=== PATIENT | female | born 1970 | race Caucasian/White ===

== ENCOUNTER → 2016-10-17 | Outpatient (CLI) | payer BC | END | disposition home or self-care (01) | LOC: CFH 10:01 | PROVIDERS: ATTEND Physical Medicine & Rehabilitation | DX: M54.16 Radiculopathy, lumbar region (principal); C79.51 Secondary malignant neoplasm of bone; M51.36 Other intervertebral disc degeneration, lumbar region; M51.85 Other intervertebral disc disorders, thoracolumbar region; M47.894 Other spondylosis, thoracic region; M51.24 Other intervertebral disc displacement, thoracic region | CPT/HCPCS: 72148 ==

== ENCOUNTER 2016-11-08 13:56 | Emergency (ER) | payer BC ==
[~2016-11-08] VITALS: Ht 154.9 cm; Wt 67.6 kg
[2016-11-08] MEDS ORDERED: ONDANSETRON ODT 4 MG ONE (14:44)
[2016-11-08] MEDS ORDERED: HYDROmorphone 1 MG/ML, 1ML ONE (14:44)
[2016-11-08] MEDS ORDERED: HYDROmorphone 1 MG/ML, 1ML IM ONE (15:00)
[2016-11-08] MEDS ORDERED: ONDANSETRON ODT 4 MG PO ONE (15:00)
[2016-11-08 15:30] VITALS: BP 113/55
== END 2016-11-08 15:32 | disposition home or self-care (01) ==
LOC: ED 14:41
DX: M54.5 Low back pain (principal); M54.6 Pain in thoracic spine
CPT/HCPCS: 96372; 99283; J1170; Q0162

== ENCOUNTER → 2016-11-08 | Outpatient (CLI) | payer BC ==
[~2016-11-08] MED LIST: OMNIPAQUE 350 MG/ML, 100ML BOTTLE ONE
== END | disposition home or self-care (01) ==
LOC: CFH 11:58
PROVIDERS: ATTEND Internal Medicine Hematology & Oncology
DX: C79.51 Secondary malignant neoplasm of bone (principal); M54.5 Low back pain; R10.2 Pelvic and perineal pain; R10.9 Unspecified abdominal pain; R07.9 Chest pain, unspecified
CPT/HCPCS: 71260; 74177; Q9967

== ENCOUNTER → 2016-11-22 | Outpatient (CLI) | payer BC | END | disposition home or self-care (01) | LOC: CFH 08:52 | PROVIDERS: ATTEND Internal Medicine Hematology & Oncology | DX: N63 Unspecified lump in breast (principal); N60.02 Solitary cyst of left breast; M54.5 Low back pain | CPT/HCPCS: 76642; G0204 ==

== ENCOUNTER 2017-01-07 06:23 | Day surgery (SDC) | payer BC ==
[~2017-01-07] VITALS: Ht 157.5 cm; Wt 69.0 kg
[2017-01-07 07:00] VITALS: BP 126/85
[2017-01-07] MEDS ORDERED: LIDOCAINE 1%, 20ML ONE (08:32)
[2017-01-07] MEDS ORDERED: MIDAZOLAM 1 MG/ML, 5ML ONE (08:45)
[2017-01-07] MEDS ORDERED: NALOXONE 1 MG/ML, 2ML ONE (08:46)
[2017-01-07] MEDS ORDERED: FENTANYL PF 100 MCG/2ML ONE (08:46)
[2017-01-07] MEDS ORDERED: FLUMAZENIL 0.1 MG/1 ML, 5ML ONE (08:46)
== END 2017-01-07 11:03 ==
LOC: OUT 06:23
PROVIDERS: ATTEND Internal Medicine Hematology & Oncology
DX: M51.86 Other intervertebral disc disorders, lumbar region (principal); M54.9 Dorsalgia, unspecified; Z98.890 Other specified postprocedural states
CPT/HCPCS: 20225; 36415; 77012; 85025; 88307; 88311; 88341; 88342; 88360; 99156; 99157; J2250; J3010; J3490; G0461; J2310

== ENCOUNTER 2017-01-14 16:48 | Emergency (ER) | payer BC | END 2017-01-14 17:29 | disposition left against medical advice (07) | LOC: ED 17:23 | DX: R51 Headache (principal); Z53.21 Procedure and treatment not carried out due to patient leaving prior to being seen by health care provider ==

== ENCOUNTER → 2017-01-22 | Outpatient (CLI) | payer BC ==
[~2017-01-22] MED LIST changes: +GADOBUTROL 7.5 MMOL/7.5 ML PFS ONE; -OMNIPAQUE 350 MG/ML, 100ML BOTTLE ONE
== END | disposition home or self-care (01) ==
LOC: RAD 08:32
PROVIDERS: ATTEND Neurological Surgery
DX: M50.223 Other cervical disc displacement at C6-C7 level (principal); M50.123 Cervical disc disorder at C6-C7 level with radiculopathy; M51.04 Intervertebral disc disorders with myelopathy, thoracic region; M51.44 Schmorl's nodes, thoracic region; M47.894 Other spondylosis, thoracic region; M25.78 Osteophyte, vertebrae; G95.9 Disease of spinal cord, unspecified
CPT/HCPCS: 72156; 72157; A9585

== ENCOUNTER 2017-03-06 12:59 | Day surgery (SDC) | payer BC ==
[~2017-03-06] VITALS: Ht 157.5 cm; Wt 69.0 kg
[2017-03-06] MEDS ORDERED: LIDOCAINE 1%, 20ML ONE (13:48)
[2017-03-06 14:00] VITALS: BP 125/84
[2017-03-06] MEDS ORDERED: MIDAZOLAM 1 MG/ML, 5ML ONE (14:01)
[2017-03-06] MEDS ORDERED: FENTANYL PF 100 MCG/2ML ONE (14:02)
[2017-03-06] MEDS ORDERED: SODIUM CHLORIDE 0.9% 1,000 ML IV SCH (14:04)
[2017-03-06] MEDS ORDERED: MEPERIDINE/PF 50 MG/ML ONE (14:22)
[2017-03-06] MEDS ORDERED: PROMETHAZINE 25 MG/ML, 1ML ONE (14:22)
[2017-03-06] MEDS ORDERED: DICLOFENAC 50 MG TABLET.DR PO ONE (16:00)
[2017-03-06] MEDS ORDERED: DICLOFENAC 50 MG TABLET.DR PO PRN (16:30)
== END 2017-03-06 16:50 ==
LOC: OUT 12:59
PROVIDERS: ATTEND Nurse Practitioner Family
DX: M54.6 Pain in thoracic spine (principal); D64.9 Anemia, unspecified; Z87.01 Personal history of pneumonia (recurrent); Z86.39 Personal history of other endocrine, nutritional and metabolic disease
CPT/HCPCS: 20225; 77002; 88307; 88311; 99156; 99157; J2175; J2250; J2550; J3010; J3490; J7030

== ENCOUNTER 2017-03-28 06:39 | Emergency (ER) | payer BC ==
[~2017-03-28] VITALS: Ht 154.9 cm; Wt 75.0 kg
[2017-03-28] MEDS ORDERED: CALC3.7S5 NAS (07:11)
[2017-03-28] MEDS ORDERED: c-progesterone PO (07:11)
[2017-03-28] MEDS ORDERED: LEVO88TA4 PO (07:11)
[2017-03-28] MEDS ORDERED: SODIUM CHLORIDE FLUSH 10ML SYR IVF ONE (07:30)
[2017-03-28] MEDS ORDERED: DIPHENHYDRAMINE 50 MG/ML, 1ML IVPush ONE (07:30)
[2017-03-28] MEDS ORDERED: SODIUM CHLORIDE 0.9% 1,000ML IVBOLUS ONE (07:30)
[2017-03-28] MEDS ORDERED: METOCLOPRAMIDE 5 MG/ML, 2ML IVPush ONE (07:30)
[2017-03-28 07:38] LABS: HEMATOCRIT 39.4 % (34.6-47.8); HEMOGLOBIN 13.6 g/dL (11.7-16.4)
[2017-03-28] MEDS ORDERED: METOCLOPRAMIDE 5 MG/ML, 2ML ONE (07:44)
[2017-03-28] MEDS ORDERED: DIPHENHYDRAMINE 50 MG/ML, 1ML ONE (07:45)
[2017-03-28] MEDS ORDERED: ONDANSETRON 2MG/ML, 2ML ONE (07:45)
[2017-03-28 07:49] LABS: BLOOD UREA NITROGEN 10 mg/dL (7-18)
[2017-03-28 09:47] VITALS: BP 126/73
== END 2017-03-28 09:49 | disposition home or self-care (01) ==
LOC: ED 07:20
DX: G44.209 Tension-type headache, unspecified, not intractable (principal)
CPT/HCPCS: 36415; 70450; 80048; 81003; 82040; 85025; 93005; 96361; 96374; 96375; 99285; J1200; J2765; J7030